=== PATIENT | male | born 1965 | race Caucasian/White ===

== ENCOUNTER → 2020-12-05 | Outpatient (CLI) | payer BC | LOC: KOH-I 12:36 | DX: R05 Cough (principal); R91.8 Other nonspecific abnormal finding of lung field | CPT/HCPCS: 71046 ==

== ENCOUNTER → 2021-07-01 | Outpatient (CLI) | payer BC | LOC: HEART 5 15:21 | DX: R06.00 Dyspnea, unspecified (principal) | CPT/HCPCS: 94010 ==